=== PATIENT | male | born 1995 | race Caucasian/White ===

== ENCOUNTER 2016-12-10 22:44 | Emergency (ER) | payer OTHER ==
[~2016-12-10] VITALS: Wt 60.5 kg
[2016-12-11] MEDS ORDERED: IBUPROFEN 600 MG TAB PO STA (00:24)
--- NOTE | 2016-12-11 01:57 | RADRPT ---
PROCEDURE: X-ray right thumb. CLINICAL INDICATION: Right thumb pain. TECHNIQUE: 3 views right thumb. COMPARISON: None FINDINGS: No acute fracture or dislocation. Soft tissues unremarkable. IMPRESSION: No acute fracture. RPTAT: [facility] Physician Philipp Date Time Electronically viewed and signed by Melissa Kong Physician on 12/11/2016 01:57 RS/
[2016-12-11] MEDS ORDERED: IBUP400T22 PO (02:05)
[2016-12-11 02:36] VITALS: BP 121/70; PULSE 89; RESP 17; TEMP 98.7
--- NOTE | 2016-12-11 06:15 | ERD ---
ER Documentation Chief Complaint Date/Time DATE: 12/11/16 TIME: 06:13 Chief Complaint right thumb pain, got smashed on car door yesterday HPI This is a 21-year-old male presenting to the emergency department complaining of right thumb pain status post getting crushed between a car door yesterday. Patient states the pain is moderate in severity. He admits to having some mild restricted range of motion. He has not taken any medications for this peer ROS All systems reviewed and are negative except as per history of present illness. Medications Home Meds Active Scripts Ibuprofen* (Ibuprofen*) 400 Mg Tablet, 400 MG PO Q6H Y for PAIN, #30 TAB Prov:VALARIE DIAMOND PA-C 12/11/16 Allergies Allergies: Coded Allergies: No Known Drug Allergies (Verified Allergy, Unknown, 12/10/16) PMhx/Soc Medical and Surgical Hx: pt denies Medical Hx, pt denies Surgical Hx History of Surgery: No (DENIES MEDICAL AND SURGICAL HX.) Hx Alcohol Use: No Hx Substance Use: No Hx Tobacco Use: No Smoking Status: Never smoker Physical Exam Vitals Vital Signs Date Time Temp Pulse Resp B/P Pulse Ox O2 Delivery O2 Flow Rate FiO2 12/11/16 02:36 98.7 89 17 121/70 98 Room Air 12/10/16 22:58 98.9 80 20 129/73 98 Physical Exam General: WD/WN, in no apparent distress, non-toxic appearing HENT: NC/AT Eyes: Conjunctiva normal Neck: Supple Pulm: Clear to auscultation, normal labored breathing; no wheezing/rales/ rhonchi heard CV: Good capillary refill GI: Non-distended, no guarding Back: No masses Ext: Tenderness to palpation over the right distal thumb with ecchymosis, restricted range of motion due to pain Neuro: Moves on all fours Skin: intact Psych: Normal mood Results 24 hrs Current Medications Medications (Trade) Dose Ordered Sig/William Route PRN Reason Start Time Stop Time Status Last Admin Dose Admin Ibuprofen (Motrin) 600 mg ONCE STAT PO 12/11/16 00:24 12/11/16 00:25 DC 12/11/16 01:48 Procedures/MDM This is a 21-year-old male presenting to the emergency room complaining of right distal thumb pain status post getting crushed between a car door yesterday , there was no evidence of fracture dislocation on x-ray. Patient is neurovascular intact and stable for discharge. Prescription for ibuprofen was provided. Discussed return to the ER for any worsening symptoms. He understands and agrees with this plan. Patient was provided an metal splint with good fit and he is neurovascular intact pre-and post treatment \\\ Departure Diagnosis: Primary Impression: Crush injury Condition: Stable Patient Instructions: Crush Injury, Hand/Finger, Crush Injury, Hand/Finger, No Fracture (Child) Additional Instructions: FOLLOW UP WITH YOUR PRIMARY CARE PHYSICIAN TOMORROW.Return to this facility if you are not improving as expected. Take all medicines as directed. Return to this facility if you are not improving as expected. VALARIE DIAMOND PA-C Dec 11, 2016 06:15
== END 2016-12-11 02:37 | disposition home or self-care (01) ==
LOC: FTE 22:44
DX: S67.01XA Crushing injury of right thumb, initial encounter (principal); W22.09XA Striking against other stationary object, initial encounter; Y92.9 Unspecified place or not applicable
CPT/HCPCS: 29130; 73140; Z7610

== ENCOUNTER 2018-01-15 08:41 | Emergency (ER) | END 2018-01-15 10:20 | disposition home or self-care (01) ==